=== PATIENT | female | born 1980 | race American Indian/Alaskan Native ===

== ENCOUNTER 2017-08-20 22:13 | Observation (INO) | payer OTHER, MEDICAID ==
[2017-08-20] MEDS ORDERED: NACL 0.9% 1000 ML 1,000 ML IV ONE (22:24)
--- NOTE | 2017-08-20 22:38 | Emergency Department Report ---
ED Syncope HPI - General Stated Complaint: low BP Time Seen by Provider: 08/20/17 22:15 Source: patient, EMS Exam Limitations: no limitations - History of Present Illness Initial Comments: Patient is a 37-year-old female that presents emergency room with syncopal episode just prior to arrival. Patient states that she started to become lightheaded so she sat down and passed out. Patient states she did not hit her head. Patient states that she was out for few seconds. Patient denies chest pain or shortness of breath. Patient denies fever chills. Patient denies any pain. Patient states that she was walking all day in the heat and has not taken any water or food today. Patient states she did take her hydrochlorothiazide this morning. He has history of high blood pressure only. Patient states she did have 1 alcoholic cocktail as well today Timing/Prior Episodes: no prior history Precipitating Factors: Positive: blurred vision, lightheadedness Context: standing Loss of Consciousness: brief (seconds) Current Symptoms: back to normal - Related Data Allergies/Adverse Reactions: Allergies No Known Allergies Allergy (Unverified 08/20/17 22:16) ED Review of Systems ROS: Stated complaint: HIGH BP Other details as noted in HPI Constitutional: denies: chills, fever Eyes: denies: eye pain, eye discharge, vision change ENT: denies: ear pain, throat pain Respiratory: denies: cough, shortness of breath, wheezing Cardiovascular: denies: chest pain, palpitations Endocrine: no symptoms reported Gastrointestinal: denies: abdominal pain, nausea, diarrhea Genitourinary: denies: urgency, dysuria, discharge Musculoskeletal: denies: back pain, joint swelling, arthralgia Skin: denies: rash, lesions Neurological: denies: headache, weakness, paresthesias Psychiatric: denies: anxiety, depression Hematological/Lymphatic: denies: easy bleeding, easy bruising ED Past Medical Hx - Past Medical History Previous Medical History?: Yes Hx Hypertension: Yes - Surgical History Past Surgical History?: No - Family History Family history: hypertension - Social History Smoking Status: Current Every Day Smoker Substance Use Type: Alcohol ED Physical Exam - General General appearance: alert, in no apparent distress - Head Head exam: Present: atraumatic, normocephalic - Eye Eye exam: Present: normal appearance - ENT ENT exam: Present: mucous membranes moist - Neck Neck exam: Present: normal inspection - Respiratory Respiratory exam: Present: normal lung sounds bilaterally. Absent: respiratory distress - Cardiovascular Cardiovascular Exam: Present: regular rate, normal rhythm. Absent: systolic murmur, diastolic murmur, rubs, gallop - GI/Abdominal GI/Abdominal exam: Present: soft, normal bowel sounds - Extremities Exam Extremities exam: Present: normal inspection - Back Exam Back exam: Present: normal inspection - Neurological Exam Neurological exam: Present: alert, oriented X3 - Psychiatric Psychiatric exam: Present: normal affect, normal mood - Skin Skin exam: Present: warm, dry, intact, normal color. Absent: rash ED Course Vital Signs 08/20/17 08/20/17 08/20/17 22:14 22:16 22:30 Temperature 97.8 F Pulse Rate 93 H 90 92 H Respiratory 27 H 16 14 Rate Blood Pressure 105/44 104/57 O2 Sat by Pulse 95 92 91 Oximetry 08/20/17 08/20/17 08/20/17 22:46 23:00 23:16 Temperature Pulse Rate 98 H 96 H 97 H Respiratory 21 24 16 Rate Blood Pressure 113/64 106/54 106/54 O2 Sat by Pulse 97 96 98 Oximetry 08/20/17 08/20/17 08/20/17 23:30 23:43 23:46 Temperature Pulse Rate 99 H 100 H 101 H Respiratory 20 12 12 Rate Blood Pressure 106/54 113/68 113/68 O2 Sat by Pulse 100 100 99 Oximetry 08/20/17 08/21/17 08/21/17 23:58 00:00 00:16 Temperature Pulse Rate 105 H 102 H 102 H Respiratory 20 14 19 Rate Blood Pressure 113/68 131/80 131/80 O2 Sat by Pulse 100 100 100 Oximetry 08/21/17 08/21/17 08/21/17 00:30 00:46 01:00 Temperature Pulse Rate Respiratory Rate Blood Pressure 131/80 131/80 123/76 O2 Sat by Pulse 99 100 74 L Oximetry 08/21/17 08/21/17 08/21/17 01:16 01:33 01:50 Temperature Pulse Rate Respiratory Rate Blood Pressure 123/76 128/74 121/70 O2 Sat by Pulse 83 L 64 L 82 L Oximetry 08/21/17 08/21/17 08/21/17 02:00 02:20 02:30 Temperature Pulse Rate Respiratory Rate Blood Pressure 115/64 120/61 120/61 O2 Sat by Pulse 86 Oximetry 08/21/17 08/21/17 08/21/17 02:51 03:06 03:18 Temperature Pulse Rate Respiratory Rate Blood Pressure 129/60 129/60 129/60 O2 Sat by Pulse 82 L 83 L 87 Oximetry 08/21/17 08/21/17 08/21/17 03:30 03:47 04:01 Temperature Pulse Rate Respiratory Rate Blood Pressure 134/91 145/83 145/83 O2 Sat by Pulse 82 L 97 Oximetry 08/21/17 08/21/17 08/21/17 04:17 04:32 04:46 Temperature Pulse Rate Respiratory Rate Blood Pressure 145/83 145/83 145/83 O2 Sat by Pulse 76 L Oximetry 08/21/17 08/21/17 05:00 05:16 Temperature Pulse Rate Respiratory Rate Blood Pressure 145/83 145/83 O2 Sat by Pulse Oximetry - Reevaluation(s) Reevaluation #1: BP improving. We'll continue to monitor patient and blood pressure. CT is still pending 08/20/17 23:32 Reevaluation #2: We'll admit patient to the hospital for further evaluation and treatment. Dr. Almanzar, hospitalist consulted for admission. Dr. Almanzar to assume care. Dr. Almanzar given for report. Plan of care discussed with patient. Patient agreed to admission. 08/21/17 02:44 - EJ/Peripheral Line Neck R Time Out Performed: Yes Indications: nurses unable to establis Skin Cleansed in Sterile Fashion: Yes Size: 20 Dressing Placed: Tegaderm, tape Patient Tolerated Procedure: well ED Medical Decision Making - Lab Data Result diagrams: 08/20/17 23:34 08/20/17 23:34 - Radiology Data Radiology results: report reviewed CT head reviewed and no acute findings. - Medical Decision Making Patient is a 37 [id number] female that presented to the emergency room with a syncopal episode and hypotension and was found to have an elevated lactic acid. Patient is admitted to the hospitalist service for further evaluation treatment - Differential Diagnosis hypotension. Dehydration. Lactic acidosis. Critical Care Time: Yes Critical care attestation.: If time is entered above; I have spent that time in minutes in the direct care of this critically ill patient, excluding procedure time. Critical Care Time: 45 minutes spent for cc time ED Disposition Clinical Impression: Lactic acidosis, Gastroenteritis Syncopal episodes Qualifiers: Syncope type: unspecified Qualified Code(s): R55 - Syncope and collapse Hypotension Qualifiers: Hypotension type: hypotension due to hypovolemia Qualified Code(s): I95.89 - Other hypotension Anemia Qualifiers: Anemia type: unspecified type Qualified Code(s): D64.9 - Anemia, unspecified Disposition: DC-09 OP ADMIT IP TO THIS HOSP Is pt being admited?: Yes Does the pt Need Aspirin: No Condition: Serious Time of Disposition: 06:29
[2017-08-20 23:50] LABS: Basophils # (Auto) 0.1 K/mm3 (0.0-0.1); Basophils % (Auto) 0.5 % (0.0-1.8); Eosinophils % (Auto) 0.2 % (0.0-4.3); Hematocrit 31.9 % (30.3-42.9); Hemoglobin 9.8 gm/dl (10.1-14.3); Lymphocytes # (Auto) 2.9 K/mm3 (1.2-5.4); Lymphocytes % (Auto) 23.5 % (13.4-35.0); Mean Corpuscular HGB Conc 31 % (30-34); Mean Corpuscular Hemoglobin 27 pg (28-32); Mean Corpuscular Volume 88 fl (79-97); Monocytes % (Auto) 7.8 % (0.0-7.3); Platelet Count 392 K/mm3 (140-440); Red Blood Count 3.61 M/mm3 (3.65-5.03); Red Cell Distribution Width 17.5 % (13.2-15.2)
[2017-08-21 00:12] LABS: Creatine Kinase MB 1.6 ng/mL (0.0-4.0)
[2017-08-21 00:13] LABS: Alanine Aminotransferase 14 units/L (7-56); BUN/Creatinine Ratio 11; Blood Urea Nitrogen 11 mg/dL (7-17); Calcium 9.2 mg/dL (8.4-10.2); Hemolysis Index 10
[2017-08-21] MEDS ORDERED: NACL 0.9% 1000 ML 1,000 ML IV ONE (02:29)
[2017-08-21] MEDS ORDERED: TYLENOL PO PRN (03:51)
[2017-08-21] MEDS ORDERED: PERCOCET 5/325 PO PRN (03:51)
[2017-08-21] MEDS ORDERED: SODIUM CHLORIDE FLUSH SYRINGE 10 ML IV PRN (03:51)
[2017-08-21] MEDS ORDERED: ZOFRAN IV PRN (03:51)
--- NOTE | 2017-08-21 03:53 | History and Physical Report ---
History of Present Illness Date of examination: 08/21/17 History of present illness: 37-year-old and a history of hypertension, asthma emergency room with complaints of syncope. She states she did not eat much today, she went to the store, felt dizzy and clammy and passed out. EMS was called and she was hypotensive, in the emergency room she was given IV fluids Review of systems Constitutional: no weight loss, chills, fever Ears, eyes, nose, mouth and throat: no nasal congestion, no nasal discharge, no sinus pressure, no vision change, no red eye. Neck: No neck pain or rigidity. Cardiovascular: no chest pain, palpitations Respiratory: no cough, shortness of breath Gastrointestinal: no abdominal pain hematochezia Genitourinary : no frequency , no hematuria Musculoskeletal: no joint swelling or muscle ache Integumentary: no rash, no pruritis Neurological: no parathesias, no numbness, no focal weakness Endocrine: no cold or heat intolerance, no polyuria or polydipsia Hematologic/Lymphatic: no easy bruising, no easy bleeding, no gland swelling Allergic/Immunologic: no urticaria, no angioedema. PAST MEDICAL HISTORY: hypertension, asthma PAST SURGICAL HISTORY: Tubal ligation SOCIAL HISTORY: + alcohol, no drugs, tobacco FAMILY HISTORY: Hypertension Medications and Allergies Allergies Allergy/AdvReac Type Severity Reaction Status Date / Time No Known Allergies Allergy Unverified 08/20/17 22:16 Exam - Physical Exam Narrative exam: Gen. appearance: Patient lying in bed, no apparent distress HEENT: Normocephalic, atraumatic, pupils equally round and reactive to light, extraocular movement intact, and no sclericterus,. No JVD or thyromegaly or nodule,neck supple, no carotid bruit ,mucous membranes moist, no exudate or erythema Heart: S1, S2, regular rate and rhythm Lungs: Clear bilaterally, breathing comfortable Abdomen: Positive bowel sounds, non-tender, nondistended, no organomegaly Extremity:no edema cyanosis, clubbing Skin: no rash, dry, warm Neuro: Oriented 3, cranial nerves II-12 intact, speech is fluent, motor and sensory intact - Constitutional Vitals: Temp Pulse Resp BP Pulse Ox 97.8 F 102 H 19 120/61 86 08/20/17 22:16 08/21/17 00:16 08/21/17 00:16 08/21/17 02:30 08/21/17 02:30 Results - Labs CBC & Chem 7: 08/20/17 23:34 08/20/17 23:34 Labs: Abnormal lab results 08/20/17 08/20/17 08/20/17 Range/Units 23:34 23:34 23:34 WBC 12.4 H (4.5-11.0) K/mm3 RBC 3.61 L (3.65-5.03) M/mm3 Hgb 9.8 L (10.1-14.3) gm/dl MCH 27 L (28-32) pg RDW 17.5 H (13.2-15.2) % [place] % (Auto) 7.8 H (0.0-7.3) % [place] # 1.0 H (0.0-0.8) K/mm3 Seg Neutrophils # 8.4 H (1.8-7.7) K/mm3 D-Dimer (0-234) ng/mlDDU Potassium 3.1 L (3.6-5.0) mmol/L Carbon Dioxide 16 L (22-30) mmol/L Glucose 62 L (65-100) mg/dL Lactic Acid 6.50 H* (0.7-2.0) mmol/L Total Creatine Kinase 156 H (30-135) units/L 08/21/17 Range/Units 03:28 WBC (4.5-11.0) K/mm3 RBC (3.65-5.03) M/mm3 Hgb (10.1-14.3) gm/dl MCH (28-32) pg RDW (13.2-15.2) % [place] % (Auto) (0.0-7.3) % [place] # (0.0-0.8) K/mm3 Seg Neutrophils # (1.8-7.7) K/mm3 D-Dimer 261.01 H (0-234) ng/mlDDU Potassium (3.6-5.0) mmol/L Carbon Dioxide (22-30) mmol/L Glucose (65-100) mg/dL Lactic Acid (0.7-2.0) mmol/L Total Creatine Kinase (30-135) units/L - Imaging and Cardiology EKG: image reviewed CT Scan - head: report reviewed Assessment and Plan Assessment Syncope History of hypertension now normotensive Plan Admit to medicine Check cardiac enzymes, CT chest, echo, carotid doppler DVT prophylaxis, IV fluids
[2017-08-21] MEDS ORDERED: NACL 0.9% 1000 ML 1,000 ML IV SCH (04:00)
[2017-08-21 04:33] LABS: Creatine Kinase MB 1.6 ng/mL (0.0-4.0)
--- NOTE | 2017-08-21 04:47 | Cat Scan Report ---
FINAL REPORT PROCEDURE: CT HEAD/BRAIN WO CON TECHNIQUE: Computerized tomography of the head was performed without contrast material. HISTORY: Syncope COMPARISON: No prior studies are available for comparison. FINDINGS: Skull and scalp: Normal. Paranasal sinuses: Normal. Ventricles and subarachnoid spaces: Normal. Cerebrum: No evidence of hemorrhage, acute infarction or mass . Cerebellum and brainstem: No evidence of hemorrhage, acute infarction or mass. Vasculature: Normal. Comments: None. IMPRESSION: Normal Examination
--- NOTE | 2017-08-21 10:23 | Nuclear Medicine Report ---
FINAL REPORT EXAM: NM LUNG SCAN PERF/VENT HISTORY: SOB TECHNIQUE: 15.0 mCi Xenon-133 was used for ventilation. 5.0 mCi of technetium 99m MAA was used for perfusion. Multiple planar images were obtained. PRIORS: Chest x-ray August 21, 2017. FINDINGS: Ventilation: Uniform. Perfusion: No perfusion defects. IMPRESSION: Based on the PIOPED study, findings represent normal study for PE.
--- NOTE | 2017-08-21 10:38 | XRay Report ---
FINAL REPORT EXAM: XR CHEST 1V AP HISTORY: Syncope TECHNIQUE: Frontal chest x-ray. PRIORS: None currently available. FINDINGS: Cardiac silhouette is within normal limits. There is no effusion. There is no pneumothorax. There is no consolidation. There are no suspicious osseous lesions. IMPRESSION: No acute cardiopulmonary findings.
--- NOTE | 2017-08-21 11:48 | Progress Note ---
Assessment and Plan Assessment and plan: Syncope. CTA of chest and CT head found to be negative. Await echocardiogram and carotid ultrasound. Continue to monitor on telemetry. Etiology likely vasovagal. Hypertension. Start labetalol twice a day. History Interval history: No new issues overnight. Hospitalist Physical - Constitutional Vitals: Temp Pulse Resp BP Pulse Ox 97 F L 76 16 148/94 96 08/21/17 10:07 08/21/17 10:07 08/21/17 10:07 08/21/17 10:08/21/17 10:07 General appearance: Present: no acute distress, well-nourished - EENT Eyes: Present: PERRL, EOM intact ENT: hearing intact, clear oral mucosa, dentition normal - Neck Neck: Present: supple, normal ROM - Respiratory Respiratory effort: normal Respiratory: bilateral: CTA - Cardiovascular Rhythm: regular Heart Sounds: Present: S1 & S2. Absent: gallop, rub - Extremities Extremities: no ischemia, No edema, Full ROM - Abdominal General gastrointestinal: soft, non-tender, non-distended, normal bowel sounds - Integumentary Integumentary: Present: clear, warm, dry - Neurologic Neurologic: CNII-XII intact, moves all extremities Results - Labs CBC & Chem 7: 08/20/17 23:34 08/20/17 23:34 Labs: Laboratory Last Values WBC 12.4 K/mm3 (4.5-11.0) H 08/20/17 23:34 RBC 3.61 M/mm3 (3.65-5.03) L 08/20/17 23:34 Hgb 9.8 gm/dl (10.1-14.3) L 08/20/17 23:34 Hct 31.9 % (30.3-42.9) 08/20/17 23:34 MCV 88 fl (79-97) 08/20/17 23:34 MCH 27 pg (28-32) L 08/20/17 23:34 MCHC 31 % (30-34) 08/20/17 23:34 RDW 17.5 % (13.2-15.2) H 08/20/17 23:34 Plt Count 392 K/mm3 (140-440) 08/20/17 23:34 Lymph % (Auto) 23.5 % (13.4-35.0) 08/20/17 23:34 [place] % (Auto) 7.8 % (0.0-7.3) H 08/20/17 23:34 Eos % (Auto) 0.2 % (0.0-4.3) 08/20/17 23:34 Baso % (Auto) 0.5 % (0.0-1.8) 08/20/17 23:34 Lymph # 2.9 K/mm3 (1.2-5.4) 08/20/17 23:34 [place] # 1.0 K/mm3 (0.0-0.8) H 08/20/17 23:34 Eos # 0.0 K/mm3 (0.0-0.4) 08/20/17 23:34 Baso # 0.1 K/mm3 (0.0-0.1) 08/20/17 23:34 Seg Neutrophils % 68.0 % (40.0-70.0) 08/20/17 23:34 Seg Neutrophils # 8.4 K/mm3 (1.8-7.7) H 08/20/17 23:34 D-Dimer 261.01 ng/mlDDU (0-234) H 08/21/17 03:28 Sodium 139 mmol/L (137-145) 08/20/17 23:34 Potassium 3.1 mmol/L (3.6-5.0) L 08/20/17 23:34 Chloride 100.1 mmol/L (98-107) 08/20/17 23:34 Carbon Dioxide 16 mmol/L (22-30) L 08/20/17 23:34 Anion Gap 26 mmol/L 08/20/17 23:34 BUN 11 mg/dL (7-17) 08/20/17 23:34 Creatinine 1.0 mg/dL (0.7-1.2) 08/20/17 23:34 Estimated GFR > 60 ml/min 08/20/17 23:34 BUN/Creatinine Ratio 11 % 08/20/17 23:34 Glucose 62 mg/dL (65-100) L 08/20/17 23:34 Lactic Acid 1.10 mmol/L (0.7-2.0) 08/21/17 03:59 Calcium 9.2 mg/dL (8.4-10.2) 08/20/17 23:34 Total Bilirubin 0.20 mg/dL (0.1-1.2) 08/20/17 23:34 AST 28 units/L (5-40) 08/20/17 23:34 ALT 14 units/L (7-56) 08/20/17 23:34 Alkaline Phosphatase 55 units/L (35-129) 08/20/17 23:34 Total Creatine Kinase 156 units/L (30-135) H 08/21/17 03:59 CK-MB (CK-2) 1.6 ng/mL (0.0-4.0) 08/21/17 03:59 CK-MB (CK-2) Rel Index 1.0 (0-4) 08/21/17 03:59 Troponin T < 0.010 ng/mL (0.00-0.029) 08/21/17 03:59 Total Protein 6.8 g/dL (6.3-8.2) 08/20/17 23:34 Albumin 4.0 g/dL (3.9-5) 08/20/17 23:34 Albumin/Globulin Ratio 1.4 % 08/20/17 23:34
[2017-08-21 12:24] LABS: Creatine Kinase MB 1.9 ng/mL (0.0-4.0)
[2017-08-21] MEDS: LOVENOX SUB-Q SCH (18:02)
[2017-08-21] MEDS: SODIUM CHLORIDE FLUSH SYRINGE 10 ML IV SCH ×2 (18:03→22:01)
[2017-08-21] MEDS: NORMODYNE PO SCH (22:01)
[2017-08-22] MEDS ORDERED: PEPCID PO ONE (00:43)
[2017-08-22 02:08] LABS: Amorphous Crystals,Urine Few; Bacteria,Urine 2+ /HPF (Negative); Bilirubin,Urine NEG (Negative); Blood,Urine MOD (Negative); Color,Urine Yellow (Yellow); Protein,Urine <15 mg/dL mg/dL (Negative)
[2017-08-22 07:22] LABS: Basophils % (Auto) 0.3 % (0.0-1.8); Eosinophils # (Auto) 0.1 K/mm3 (0.0-0.4); Eosinophils % (Auto) 0.6 % (0.0-4.3); Hematocrit 29.1 % (30.3-42.9); Hemoglobin 9.2 gm/dl (10.1-14.3); Lymphocytes # (Auto) 2.8 K/mm3 (1.2-5.4); Lymphocytes % (Auto) 28.3 % (13.4-35.0); Mean Corpuscular HGB Conc 32 % (30-34); Mean Corpuscular Hemoglobin 28 pg (28-32); Mean Corpuscular Volume 87 fl (79-97); Monocytes # (Auto) 0.6 K/mm3 (0.0-0.8); Platelet Count 353 K/mm3 (140-440); Red Blood Count 3.36 M/mm3 (3.65-5.03); Red Cell Distribution Width 17.3 % (13.2-15.2)
[2017-08-22 07:45] LABS: BUN/Creatinine Ratio 14; Blood Urea Nitrogen 10 mg/dL (7-17); Calcium 8.5 mg/dL (8.4-10.2); Hemolysis Index 1
--- NOTE | 2017-08-22 07:53 | Discharge Summary ---
Providers - Providers Date of Admission: 08/21/17 03:51 Date of discharge: 08/22/17 Attending physician: RAUL FUNG Primary care physician: EDYTA RAMIREZ MD Hospitalization Reason for admission: syncope Condition: Serious Hospital course: 37-year-old and a history of hypertension, asthma emergency room with complaints of syncope. 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 She reportedly went to the store, felt dizzy and clammy and passed out. EMS was called and she was hypotensive, in the emergency room she was given IV fluids. The pt's labs revealed elevated d-dimer but CTA chest negative for PE. Pt also had negative carotid dopplers. Echo to be completed this am and can be followed up as outpatient. Dedicated d/c 32 min Disposition: DC-01 TO HOME OR SELFCARE Time spent for discharge: 32 - Discharge Diagnoses (1) Syncope Status: Acute (2) Dehydration Status: Acute (3) Elevated d-dimer Status: Acute Core Measure Documentation - Palliative Care Palliative Care/ Comfort Measures: Not Applicable - Core Measures Any of the following diagnoses?: none Exam - Constitutional Vitals: Temp Pulse Resp BP Pulse Ox 98.5 F 83 20 114/62 98 08/22/17 05:08 08/22/17 05:08 08/22/17 05:08 08/22/17 05:08 08/22/17 05:08 General appearance: Present: no acute distress, well-nourished - EENT Eyes: Present: PERRL ENT: hearing intact, clear oral mucosa - Neck Neck: Present: supple, normal ROM - Respiratory Respiratory effort: normal Respiratory: bilateral: CTA - Cardiovascular Heart Sounds: Present: S1 & S2. Absent: rub, click - Extremities Extremities: pulses symmetrical, No edema Peripheral Pulses: within normal limits - Abdominal General gastrointestinal: Present: soft, non-tender, non-distended, normal bowel sounds Female genitourinary: Present: normal - Integumentary Integumentary: Present: clear, warm, dry - Musculoskeletal Musculoskeletal: gait normal, strength equal bilaterally - Psychiatric Psychiatric: appropriate mood/affect, intact judgment & insight - Neurologic Neurologic: CNII-XII intact, moves all extremities Plan Activity: advance as tolerated Weight Bearing Status: Full Weight Bearing Diet: regular Additional Instructions: F/U with [facility] for ECHO results Follow up with: PRIMARY CAREMD [Primary Care Provider] - 7 Days AUGUSTINE ROSA MD [Staff Physician] - 7 Days
[2017-08-22] MEDS: LOVENOX SUB-Q SCH (10:42)
[2017-08-22] MEDS: NORMODYNE PO SCH (10:43)
[2017-08-22] MEDS: SODIUM CHLORIDE FLUSH SYRINGE 10 ML IV SCH (10:44)
[2017-08-22 13:51] VITALS: BP 129/76
--- NOTE | 2017-08-24 08:28 | Vascular Lab Report ---
CAROTID DUPLEX STUDY: RIGHT PSVEDV CCA PROX:[id number] CCA DIST:97 24 ICA PROX:83 30 ICA MID:[id number] ICA DIST:[id number] ECA: 7421 VERT: 68 26 LEFT PSVEDV CCA PROX:[id number] CCA DIST:90 33 ICA PROX:95 35 ICA MID:91014 ICA DIST:41514 ECA: 67 17 VERT: 73 27 REASON FOR EXAM: Syncope. COMMENTS ON THE RIGHT: Doppler frequency analysis is consistent with 1 to 15 percent diameter reduction of the internal carotid artery. No plaque is seen. The common carotid artery is patent. The external carotid artery is patent. The vertebral artery has antegrade flow. COMMENTS ON THE LEFT: Doppler frequency analysis is consistent with 1 to 15 percent diameter reduction of the internal carotid artery. No plaque is seen. The common carotid artery is patent. The external carotid artery is patent. The vertebral artery has antegrade flow. IMPRESSION: Normal carotid artery study.
--- NOTE | 2017-08-26 17:05 | Query- SIRS ---
Genaro Banegas Date:__08/26/2017 [employer]/CDS:__Susan/Eric Phone#:__[phone] Exercise your independent professional judgment when responding to query. Questions asked do not imply a particular answer is desired or expected. We greatly appreciate your clarification on this issue. Clinical Documentation States: 37 Year old female was admitted on 08/20/2016 for syncope. The Discharge summary "She reportedly went to the store, felt dizzy and clammy and passed out. EMS was called and she was hypotensive, in the emergency room she was given IV fluids." Clinical Findings Show (include reference to source document): WBC (08/20): 12.4 KS (08/20): 105 RR (08/20): 27 Based on the above clinical scenario and your knowledge of the patient, please indicate the most appropriate diagnosis: [ ] SIRS (non-infectious) with Acute Organ Dysfunction [x ] SIRS (non-infectious) without Acute Organ Dysfunction [ ] Other: [ ] Unable to determine [ ] Comment/Explanation: Present on Admission: [x ] Yes (Y) [ ] Clinically undeterminable (W) [ ] No (N) Please also document response in your Progress Notes and/or Discharge Summary and indicate if the condition was present on admission. DELFINO
== END 2017-08-22 15:34 | disposition home or self-care (01) ==
LOC: ED 22:13 → 4A 08-21 03:51 → INTOOBSV 08-21 03:51
PROVIDERS: ADMIT Internal Medicine; ATTEND Hospitalist
DX: R55 Syncope and collapse (principal); I10 Essential (primary) hypertension; F17.200 Nicotine dependence, unspecified, uncomplicated; J45.909 Unspecified asthma, uncomplicated; Z98.51 Tubal ligation status; Z82.49 Family history of ischemic heart disease and other diseases of the circulatory system
CPT/HCPCS: 36415; 36569; 70450; 71045; 78582; 80048; 80053; 81001; 82140; 82550; 82553; 84484; 85025; 85379; 93005; 93010; 93306; 93880; 96360; 96361; 96372; 99285; 99406; A9540; A9558; G0378; J1650; J7030

== ENCOUNTER 2020-02-16 10:57 | Emergency (ER) | payer BC, OTHER ==
--- NOTE | 2020-02-16 11:06 | Event Note ---
ED Screening Note Date of service: 02/16/20 Time: 11:05 ED Screening Note: Patient complains of right arm pain and swelling x 1 week States worsening Heart rate noted to be 115 Cellulitic changes noted This initial assessment/diagnostic orders/clinical plan/treatment(s) is/are subject to change based on patients health status, clinical progression and re- assessment by fellow clinical providers in the ED. Further treatment and workup at subsequent clinical providers discretion. Patient/guardian urged not to elope from the ED as their condition may be serious if not clinically assessed and managed. Initial orders include: Labs Ultrasound
--- NOTE | 2020-02-16 12:09 | Vascular Lab Report ---
RIGHT UPPER EXTREMITY VENOUS DOPPLER ULTRASOUND HISTORY: Upper extremity pain and swelling. COMPARISON: None. TECHNIQUE: Grayscale, color and spectral Doppler imaging of the venous system of the right upper extr emity was performed. FINDINGS: Internal Jugular Vein: Normal grayscale appearance and flow. Subclavian Vein: Normal grayscale appearance and flow. Axillary Vein: Normal venous flow, compressibility and augmentation. Brachial vein: Normal venous flow, compressibility and augmentation. Radial vein: Normal venous flow, compressibility and augmentation. Ulnar vein: Normal venous flow, compressibility and augmentation. Additional Findings: Acute appearing, occluding superficial thrombus is noted in the basilic vein. IMPRESSION: No evidence for DVT. Superficial venous thrombosis is noted in the basilic vein. Signer Name: Beto Garcia Jr, MD Signed: 02/16/2020 12:05 PM Workstation Name: [id number]
--- NOTE | 2020-02-16 12:22 | Emergency Department Report ---
- General Chief complaint: Skin/Abscess/Foreign Body Stated complaint: RT ARM PAIN Time Seen by Provider: 02/16/20 11:05 Source: family Mode of arrival: Ambulatory Limitations: No Limitations - History of Present Illness Initial comments: Patient is a 39-year-old female who presents emergency room with complaints of right arm pain that began three days ago. She states yesterday it began increasing in size, increasing in warmth, increasing in redness. She denies any fall or injury. She denies any scrapes or abrasions. She denies getting bit by anything. She denies any fever, chills, vomiting, diarrhea, numbness, weakness, any other symptoms. She denies ever having this in the past. She has a past medical history of HTN and asthma. No allergies to medications. Last menstrual cycle 01/23/2020. - Related Data Previous Rx's Medication Instructions Recorded Last Taken Type Naproxen [EC-Naproxen] 500 mg PO BID PRN #14 tablet. 02/16/20 Unknown Rx Sulfamethoxazole/Trimethoprim 1 each PO BID 7 Days #14 tablet 02/16/20 Unknown Rx [Bactrim DS TAB] traMADoL [Ultram 50 MG tab] 50 mg PO Q8HR PRN #10 tablet 02/16/20 Unknown Rx Allergies Allergy/AdvReac Type Severity Reaction Status Date / Time No Known Allergies Allergy Unverified 08/20/17 22:16 Abscess Boil HPI - HPI Chief Complaint: Skin/Abscess/Foreign Body Stated Complaint: RT ARM PAIN Time Seen by Provider: 02/16/20 11:05 Home Medications: Previous Rx's Medication Instructions Recorded Last Taken Type Naproxen [EC-Naproxen] 500 mg PO BID PRN #14 tablet. 02/16/20 Unknown Rx Sulfamethoxazole/Trimethoprim 1 each PO BID 7 Days #14 tablet 02/16/20 Unknown Rx [Bactrim DS TAB] traMADoL [Ultram 50 MG tab] 50 mg PO Q8HR PRN #10 tablet 02/16/20 Unknown Rx Allergies/Adverse Reactions: Allergies Allergy/AdvReac Type Severity Reaction Status Date / Time No Known Allergies Allergy Unverified 08/20/17 22:16 ED Review of Systems ROS: Stated complaint: RT ARM PAIN Other details as noted in HPI Comment: All other systems reviewed and negative ED Past Medical Hx - Past Medical History Previous Medical History?: Yes Hx Hypertension: Yes Hx Asthma: Yes - Surgical History Past Surgical History?: Yes Additional Surgical History: tubaligation - Social History Smoking Status: Current Every Day Smoker - Medications Home Medications: Home Medications Medication Instructions Recorded Confirmed Last Taken Type Naproxen [EC-Naproxen] 500 mg PO BID PRN #14 tablet. 02/16/20 Unknown Rx Sulfamethoxazole/Trimethoprim 1 each PO BID 7 Days #14 tablet 02/16/20 Unknown Rx [Bactrim DS TAB] traMADoL [Ultram 50 MG tab] 50 mg PO Q8HR PRN #10 tablet 02/16/20 Unknown Rx ED Physical Exam - General Limitations: No Limitations General appearance: alert, in no apparent distress - Head Head exam: Present: atraumatic, normocephalic - Eye Eye exam: Present: normal appearance - ENT ENT exam: Present: mucous membranes moist - Respiratory Respiratory exam: Absent: respiratory distress, accessory muscle use - Extremities Exam Extremities exam: Present: other (6 cm by 3 cm area of induration present to the right medial upper arm, there is erythema, edema, increased warmth, no fluctuance, no opening, no blistering, no necrosis, FROM of the RUE, neurovascularly intact) - Neurological Exam Neurological exam: Present: alert, oriented X3 - Psychiatric Psychiatric exam: Present: normal affect, normal mood - Skin Skin exam: Present: warm, dry, intact ED Course Vital Signs 02/16/20 02/16/20 11:06 13:44 Temperature 97.8 F Pulse Rate 115 H 96 H Respiratory 16 18 Rate Blood Pressure 184/99 157/87 [Left] O2 Sat by Pulse 100 100 Oximetry ED Medical Decision Making - Lab Data Result diagrams: 02/16/20 12:14 02/16/20 12:14 Labs 02/16/20 02/16/20 12:14 12:14 WBC 12.5 H RBC 3.54 L Hgb 8.6 L Hct 28.1 L MCV 80 MCH 24 L MCHC 31 RDW 25.3 H Plt Count 412 Add Manual Diff Complete Total Counted 100 Seg Neuts % (Manual) 82.0 H Lymphocytes % (Manual) 14.0 Monocytes % (Manual) 4.0 Nucleated RBC % Not Reportable Seg Neutrophils # Man 10.3 H Band Neutrophils # 0.0 Lymphocytes # (Manual) 1.8 Abs React Lymphs (Man) 0.0 Monocytes # (Manual) 0.5 Eosinophils # (Manual) 0.0 Basophils # (Manual) 0.0 Metamyelocytes # 0.0 Myelocytes # 0.0 Promyelocytes # 0.0 Blast Cells # 0.0 WBC Morphology Not Reportable Hypersegmented Neuts Not Reportable Hyposegmented Neuts Not Reportable Hypogranular Neuts Not Reportable Smudge Cells Not Reportable Toxic Granulation Not Reportable Toxic Vacuolation Not Reportable Dohle Bodies Not Reportable Pelger-Huet Anomaly Not Reportable Juaquin Rods Not Reportable Platelet Estimate Consistent w auto Clumped Platelets Not Reportable Plt Clumps, EDTA Not Reportable Large Platelets Not Reportable Giant Platelets Not Reportable Platelet Satelliting Not Reportable Plt Morphology Comment Not Reportable RBC Morphology Not Reportable Dimorphic RBCs Not Reportable Polychromasia Not Reportable Hypochromasia 2+ Poikilocytosis Not Reportable Anisocytosis 2+ Microcytosis Not Reportable Macrocytosis Not Reportable Spherocytes Not Reportable Pappenheimer Bodies Not Reportable Sickle Cells Not Reportable Target Cells Not Reportable Tear Drop Cells Not Reportable Ovalocytes Not Reportable Helmet Cells Not Reportable Ang-[place] Bodies Not Reportable [place] Rings Not Reportable Bret Cells Not Reportable Bite Cells Not Reportable Crenated Cell Not Reportable Elliptocytes Not Reportable Acanthocytes (Spur) Not Reportable Rouleaux Not Reportable Hemoglobin C Crystals Not Reportable Schistocytes Not Reportable Malaria parasites Not Reportable Steve Bodies Not Reportable Hem Pathologist Commnt No Sodium 132 L Potassium 2.9 L* Chloride 93.5 L Carbon Dioxide 24 Anion Gap 17 BUN 4 L Creatinine 0.5 L Estimated GFR > 60 BUN/Creatinine Ratio 8 Glucose 80 Calcium 9.4 Total Bilirubin 0.30 AST 32 ALT 15 Alkaline Phosphatase 72 Total Protein 8.0 Albumin 3.9 Albumin/Globulin Ratio 1.0 Vital Signs 02/16/20 02/16/20 11:06 13:44 Temperature 97.8 F Pulse Rate 115 H 96 H Respiratory 16 18 Rate Blood Pressure 184/99 157/87 [Left] O2 Sat by Pulse 100 100 Oximetry - Radiology Data Radiology results: report reviewed RIGHT UPPER EXTREMITY VENOUS DOPPLER ULTRASOUND HISTORY: Upper extremity pain and swelling. COMPARISON: None. TECHNIQUE: Grayscale, color and spectral Doppler imaging of the venous system of the right upper extremity was performed. FINDINGS: Internal Jugular Vein: Normal grayscale appearance and flow. Subclavian Vein: Normal grayscale appearance and flow. Axillary Vein: Normal venous flow, compressibility and augmentation. Brachial vein: Normal venous flow, compressibility and augmentation. Radial vein: Normal venous flow, compressibility and augmentation. Ulnar vein: Normal venous flow, compressibility and augmentation. Additional Findings: Acute appearing, occluding superficial thrombus is noted in the basilic vein. IMPRESSION: No evidence for DVT. Superficial venous thrombosis is noted in the basilic vein. Signer Name: Beto Kinney Jr, MD Signed: 02/16/2020 12:05 PM Workstation Name: [id number] Transcribed By: TTR Dictated By: BETO KINNEY JR, MD Electronically Authenticated By: BETO KINNEY JR, MD Signed Date/Time: 02/16/20 1205 DD/ 1203 TD/TT: - Medical Decision Making Patient is a 39-year-old female who presents emergency room with complaints of right arm pain that began three days ago. She states yesterday it began increasing in size, increasing in warmth, increasing in redness. She denies any fall or injury. She denies any scrapes or abrasions. She denies getting bit by anything. She denies any fever, chills, vomiting, diarrhea, numbness, weakness, any other symptoms. She denies ever having this in the past. She has a past medical history of HTN and asthma. No allergies to medications. Last menstrual cycle 01/23/2020. Initial vitals with tachycardia which improved upon repeat, otherwise vitals are stable. On exam: 6 cm by 3 cm area of induration present to the right medial upper arm, there is erythema, edema, increased warmth, no fluctuance, no opening, no blistering, no necrosis, FROM of the RUE, neurovascularly intact. Examination appears consistent with cellulitis, no drainable abscess at this time. Orders placed prior to my examination. doppler RUE: No evidence for DVT. Superficial venous thrombosis is noted in the basilic vein. labs were ordered prior to my examination and resulted after discharge. There is mild leukocytosis, mild dehydration, hypokalemia. Called patient on the phone about the hypokalemia, advised to take potassium supplement and to eat potassium rich foods and then to have her potassium level rechecked on Wednesday (02/19/2020) either by her primary care doctor or to return the emergency room. Patient verbalized understanding. Patient given prescription for Bactrim, naproxen, tramadol. Advised patient Please take medication as prescribed. Do not drive or operate machinery while taking severe pain medication. Please have area reexamined within the next 3 days. follow up with your primary care doctor. Return to emergency room for any new or worsening symptoms including but not limited to worsening pain, worsening swelling, worsening redness, fever, vomiting, drainage, etc. Critical care attestation.: If time is entered above; I have spent that time in minutes in the direct care of this critically ill patient, excluding procedure time. ED Disposition Clinical Impression: Hypokalemia Cellulitis Qualifiers: Site of cellulitis: extremity Site of cellulitis of extremity: upper extremity Laterality: right Qualified Code(s): L03.113 - Cellulitis of right upper limb Disposition: - TO HOME OR SELFCARE Is pt being admited?: No Does the pt Need Aspirin: No Condition: Stable Instructions: Cellulitis, Adult Additional Instructions: Please take medication as prescribed. Do not drive or operate machinery while taking severe pain medication. Please have area reexamined within the next 3 days. follow up with your primary care doctor. Return to emergency room for any new or worsening symptoms including but not limited to worsening pain, worsening swelling, worsening redness, fever, vomiting, drainage, etc. Prescriptions: Sulfamethoxazole/Trimethoprim [Bactrim DS TAB] 1 each PO BID 7 Days #14 tablet Naproxen [EC-Naproxen] 500 mg PO BID PRN #14 tablet. PRN Reason: pain traMADoL [Ultram 50 MG tab] 50 mg PO Q8HR PRN #10 tablet PRN Reason: Pain , Severe (7-10) Referrals: ABIMAEL MANUEL MD [Primary Care Provider] - 2-3 Days Forms: Work/School Release Form(ED)
[2020-02-16 13:06] LABS: Hematocrit 28.1 % (30.3-42.9); Hemoglobin 8.6 gm/dl (10.1-14.3); Mean Corpuscular HGB Conc 31 % (30-34); Mean Corpuscular Volume 80 fl (79-97); Platelet Count 412 K/mm3 (140-440); Red Blood Count 3.54 M/mm3 (3.65-5.03)
[2020-02-16 13:08] LABS: Red Cell Distribution Width 25.3 % (13.2-15.2)
[2020-02-16 13:24] LABS: Alanine Aminotransferase 15 units/L (7-56); Albumin 3.9 g/dL (3.9-5); Blood Urea Nitrogen 4 mg/dL (7-17); Calcium 9.4 mg/dL (8.4-10.2); Hemolysis Index 0
[2020-02-16 13:43] LABS: BUN/Creatinine Ratio 8
[2020-02-16 13:45] VITALS: BP 157/87
[2020-02-16 17:48] LABS: Total Cells Counted 100
[2020-02-16 17:49] LABS: Anisocytosis 2+; Hypochromasia 2+; Platelet Estimate Consistent w Auto
== END 2020-02-16 13:45 | disposition home or self-care (01) ==
LOC: ED 10:57
DX: L03.113 Cellulitis of right upper limb (principal); E87.6 Hypokalemia; I10 Essential (primary) hypertension; J45.909 Unspecified asthma, uncomplicated; F17.200 Nicotine dependence, unspecified, uncomplicated; Z98.51 Tubal ligation status; Z79.899 Other long term (current) drug therapy
CPT/HCPCS: 36415; 80053; 85007; 85025

== ENCOUNTER 2021-07-15 23:47 | Emergency (ER) | payer BC ==
--- NOTE | 2021-07-16 01:35 | Emergency Department Report ---
ED Chest Pain HPI - General Chief Complaint: Chest Pain Stated Complaint: CHEST PAIN Time Seen by Provider: 07/16/21 01:00 Source: patient Mode of arrival: Stretcher Limitations: No Limitations - History of Present Illness Initial Comments: 40 yo F who present chest pressure that started about 2 hours before presentation. pt has been given nitro 0.4 mg SL and Aspirin 324 mg PO x 1 but with no improvement in symptoms. Pt has history of GERD and High blood pressure but not complaint with medications. No other modifying or associated factors reported. Severity scale (0 -10): 4 - Related Data Previous Rx's Medication Instructions Recorded Last Taken Type Naproxen [EC-Naproxen] 500 mg PO BID PRN #14 tablet. 02/16/20 Unknown Rx Sulfamethoxazole/Trimethoprim 1 each PO BID 7 Days #14 tablet 02/16/20 Unknown Rx [Bactrim DS TAB] traMADoL [Ultram 50 MG tab] 50 mg PO Q8HR PRN #10 tablet 02/16/20 Unknown Rx Omeprazole Magnesium [PriLOSEC Otc] 20 mg PO BID 30 Days #60 tab NS 07/16/21 Unknown Rx Vit-Fe Fumar-FA [ 1 tab PO QDAY 30 Days #30 tablet NS 07/16/21 Unknown Rx Vitamin] hydrOXYzine PAMOATE [Vistaril] 25 mg PO Q6HR PRN 5 Days #20 07/16/21 Unknown Rx capsule NS Allergies Allergy/AdvReac Type Severity Reaction Status Date / Time No Known Allergies Allergy Unverified 08/20/17 22:16 Heart Score - HEART Score History: Slightly suspicious EKG: Normal Age: < 45 Risk factors: 1-2 risk factors Troponin: < normal limit HEART Score: 1 - EKG Read Time Time EKG Completed: 00:26 EKG Read Time: 00:30 - Critical Actions Critical Actions: 0-3 pts:0.9-1.7%risk of adverse cardiac event.Candidate for discharge ED Review of Systems ROS: Stated complaint: CHEST PAIN Other details as noted in HPI Comment: All other systems reviewed and negative Cardiovascular: chest pain ED Past Medical Hx - Past Medical History Hx Hypertension: Yes Hx Asthma: Yes - Surgical History Additional Surgical History: tubaligation - Social History Smoking Status: Current Every Day Smoker - Medications Home Medications: Home Medications Medication Instructions Recorded Confirmed Last Taken Type Naproxen [EC-Naproxen] 500 mg PO BID PRN #14 tablet. 02/16/20 Unknown Rx Sulfamethoxazole/Trimethoprim 1 each PO BID 7 Days #14 tablet 02/16/20 Unknown Rx [Bactrim DS TAB] traMADoL [Ultram 50 MG tab] 50 mg PO Q8HR PRN #10 tablet 02/16/20 Unknown Rx Omeprazole Magnesium [PriLOSEC Otc] 20 mg PO BID 30 Days #60 tab NS 07/16/21 Unknown Rx Vit-Fe Fumar-FA [ 1 tab PO QDAY 30 Days #30 tablet NS 07/16/21 Unknown Rx Vitamin] hydrOXYzine PAMOATE [Vistaril] 25 mg PO Q6HR PRN 5 Days #20 07/16/21 Unknown Rx capsule NS ED Physical Exam - General Limitations: No Limitations General appearance: alert, in no apparent distress - Head Head exam: Present: normal inspection - Eye Eye exam: Present: normal appearance Pupils: Present: normal accommodation - ENT ENT exam: Present: normal exam, normal orophraynx, mucous membranes moist - Neck Neck exam: Present: normal inspection, full ROM. Absent: tenderness - Respiratory Respiratory exam: Present: normal lung sounds bilaterally, chest wall tenderness. Absent: respiratory distress, accessory muscle use - Cardiovascular Cardiovascular Exam: Present: regular rate, normal rhythm, normal heart sounds - GI/Abdominal GI/Abdominal exam: Present: soft, normal bowel sounds. Absent: distended, tenderness - Extremities Exam Extremities exam: Present: normal inspection. Absent: tenderness - Back Exam Back exam: Present: normal inspection, full ROM. Absent: tenderness - Neurological Exam Neurological exam: Present: alert, oriented X3 - Psychiatric Psychiatric exam: Present: normal affect, normal mood ED Course Vital Signs 07/16/21 07/16/21 07/16/21 00:21 00:31 00:45 Pulse Rate 95 H 95 H 96 H Respiratory 16 17 21 Rate Blood Pressure 157/90 157/90 Blood Pressure 157/90 [Right] O2 Sat by Pulse 99 97 98 Oximetry 07/16/21 07/16/21 07/16/21 01:01 01:15 01:31 Pulse Rate 103 H 93 H 87 Respiratory 24 18 20 Rate Blood Pressure 161/91 161/91 161/91 Blood Pressure [Right] O2 Sat by Pulse 98 99 98 Oximetry 07/16/21 07/16/21 07/16/21 01:45 01:59 02:01 Pulse Rate 86 87 Respiratory 26 H 23 Rate Blood Pressure 161/91 157/71 Blood Pressure [Right] O2 Sat by Pulse 98 96 99 Oximetry 07/16/21 07/16/21 07/16/21 02:15 02:31 02:45 Pulse Rate 86 103 H 100 H Respiratory 13 19 20 Rate Blood Pressure 161/91 161/91 161/91 Blood Pressure [Right] O2 Sat by Pulse 100 98 96 Oximetry 07/16/21 07/16/21 07/16/21 03:01 03:15 03:31 Pulse Rate 94 H 96 H 104 H Respiratory 23 19 15 Rate Blood Pressure 146/85 146/85 161/86 Blood Pressure [Right] O2 Sat by Pulse 95 94 95 Oximetry 07/16/21 03:45 Pulse Rate 104 H Respiratory 24 Rate Blood Pressure 161/86 Blood Pressure [Right] O2 Sat by Pulse 94 Oximetry - Reevaluation(s) Reevaluation #1: 07/16/21 01:38 Here with chest pain/pressure--differential could be but not limited to myocardial infarction, pulmonary embolism, costochondritis, anxiety, gastritis, GERD, pancreatitis, and or pyelonephritis--in order to rule out the above-- so will go ahead and order routine cardiopulmonary work-up that include troponin, EKG, chest x-ray, BNP, CKMB, and CBC, CMP and urinalysis for any correctable infectious process or electrolyte abnormality as a cause. Reevaluation #2: 07/16/21 01:39 Initial EKG noted to be normal-- Reevaluation #3: 07/16/21 03:40 H&H 7.3/23.6 --lower that it was in Feb 2020-- at 8.6/28.1-- pt denies any bloody stool or hematemesis-- will recommend PO ferrous sulphate and close follow up with PCP. ANSLEY score - Ansley Score Age > 65: (0) No Aspirin use within the Past 7 Days: (0) No 3 or more CAD Risk Factors: (0) No 2 or more Angina events in past 24 hrs: (0) No Known CAD with more than 50% Stenosis: (0) No Elevated Cardiac Markers: (0) No ST Deviation Greater than 0.5mm: (0) No ANSLEY Score: 0 ED Medical Decision Making - Lab Data Result diagrams: 07/16/21 01:57 07/16/21 01:57 - EKG Data -: EKG Interpreted by Me EKG shows normal: sinus rhythm Rate: normal - EKG Data 07/16/21 01:39 Noted with normal sinus rhythm at a rate of [address] elevation or depression noted in this normal ECG. Critical care attestation.: If time is entered above; I have spent that time in minutes in the direct care of this critically ill patient, excluding procedure time. ED Disposition Clinical Impression: Hypokalemia Chest pain Qualifiers: Chest pain type: unspecified Qualified Code(s): R07.9 - Chest pain, unspecified Anemia Qualifiers: Anemia type: unspecified type Qualified Code(s): D64.9 - Anemia, unspecified Disposition: 01 HOME / SELF CARE / HOMELESS Is pt being admited?: No Does the pt Need Aspirin: No Condition: Stable Instructions: Nonspecific Chest Pain, Adult, Nonspecific Chest Pain, Adult, [id number], Potassium Content of Foods Additional Instructions: Take your iron tablet as prescribed Increase your potassium containing food Call and follow up with your doctor in the next 3-5 days for progress Prescriptions: Vit-Fe Fumar-FA [ Vitamin] 1 tab PO QDAY 30 Days #30 tablet NS Omeprazole Magnesium [PriLOSEC Otc] 20 mg PO BID 30 Days #60 tab NS hydrOXYzine PAMOATE [Vistaril] 25 mg PO Q6HR PRN 5 Days #20 capsule NS PRN Reason: Pain , Severe (7-10) Referrals: ASAD BROWN MD [Referring] - 3-5 Days Time of Disposition: 03:57
--- NOTE | 2021-07-16 01:56 | XRay Report ---
CHEST 2 VIEWS INDICATION / CLINICAL INFORMATION: Chest Pain. COMPARISON: 08/21/2017 FINDINGS: SUPPORT DEVICES: None. HEART / MEDIASTINUM: No significant abnormality. LUNGS / PLEURA: No significant pulmonary or pleural abnormality. No pneumothorax. ADDITIONAL FINDINGS: No significant additional findings. IMPRESSION: 1. No acute findings. Signer Name: Gilmer Mathews MD Signed: 07/16/2021 1:51 AM Workstation Name: [id number]
[2021-07-16 02:10] LABS: Bacteria,Urine 1+ /HPF (Negative); Bilirubin,Urine NEG (Negative); Blood,Urine MOD (Negative); Color,Urine Yellow (Yellow); Mucus,Urine FEW /HPF; WBC,Urine < 1.0 /HPF (0.0-6.0)
[2021-07-16 02:15] LABS: Basophils # (Auto) 0.2 K/mm3 (0.0-0.1); Eosinophils # (Auto) 0.1 K/mm3 (0.0-0.4); Eosinophils % (Auto) 1.4 % (0.0-4.3); Monocytes # (Auto) 0.4 K/mm3 (0.0-0.8); Monocytes % (Auto) 4.6 % (0.0-7.3)
[2021-07-16 02:16] LABS: Amphetamine Screen,Urine PRESUMPTIVE NEGATIVE; Benzodiazepines Screen,Urine PRESUMPTIVE NEGATIVE; Cannabinoid Screen,Urine PRESUMPTIVE NEGATIVE; Cocaine Screen,Urine PRESUMPTIVE NEGATIVE; Methadone Screen,Urine PRESUMPTIVE NEGATIVE; Opiate Screen,Urine PRESUMPTIVE NEGATIVE
[2021-07-16 02:21] LABS: INR 0.91 (0.87-1.13)
[2021-07-16 02:22] LABS: Partial Thromboplastin Time 28.3 Sec. (24.2-36.6)
[2021-07-16 02:23] LABS: Basophils % (Auto) 0.4 % (0.0-1.8); Hematocrit 23.6 % (30.3-42.9); Hemoglobin 7.3 gm/dl (10.1-14.3); Lymphocytes % (Auto) 20.9 % (13.4-35.0); Mean Corpuscular HGB Conc 31 % (30-34); Mean Corpuscular Volume 80 fl (79-97); Platelet Count 467 K/mm3 (140-440); Red Blood Count 2.96 M/mm3 (3.65-5.03)
[2021-07-16 02:27] LABS: Red Cell Distribution Width 21.8 % (13.2-15.2)
[2021-07-16 02:32] LABS: Alanine Aminotransferase 17 units/L (7-56); Albumin 3.8 g/dL (3.9-5); Blood Urea Nitrogen 6 mg/dL (7-17); Hemolysis Index 0
[2021-07-16 02:33] LABS: BUN/Creatinine Ratio 10
[2021-07-16] MEDS ORDERED: POTASSIUM CHLORIDE ER 20 MEQ TAB PO ONE (03:37)
[2021-07-16 04:33] VITALS: BP 159/99
--- NOTE | 2021-07-17 12:06 | Electrocardiograph Report ---
[facility] Test Date: 2021-07-16 Test Time: 00:26:53 Pat Name: AZEEM BETHEA Department: Room: Gender: F Contact Center Team Lead: ESPERANZA : 1980 Requested By: RA CRENSHAW Order Number: [id number] Reading MD: Ksaey Valladares Measurements Intervals [place] Rate: 92 P: 45 CO: 156 QRS: -21 QRSD: 91 T: 42 QT: 401 QTc: 497 Interpretive Statements Sinus rhythm No previous ECG available for comparison Electronically Signed On 07-17-2021 12:06:14 EDT by Kasey Valladares
== END 2021-07-16 05:11 | disposition home or self-care (01) ==
LOC: ED 23:47
DX: E87.6 Hypokalemia (principal); R07.9 Chest pain, unspecified; D64.9 Anemia, unspecified; F17.200 Nicotine dependence, unspecified, uncomplicated; J45.909 Unspecified asthma, uncomplicated; I10 Essential (primary) hypertension; Z79.899 Other long term (current) drug therapy
CPT/HCPCS: 36415; 71046; 80053; 80307; 81001; 83690; 84484; 85025; 85379; 85610; 85730; 93005; 99284